=== PATIENT | male | born 2000 | race Caucasian/White ===

== ENCOUNTER 2022-02-25 04:12 | Emergency (ER) | payer OTHER | END 2022-02-25 04:40 | disposition home or self-care (01) | LOC: CSHERS 04:12 | DX: S01.511A Laceration without foreign body of lip, initial encounter (principal); F17.210 Nicotine dependence, cigarettes, uncomplicated; Y04.0XXA Assault by unarmed brawl or fight, initial encounter | CPT/HCPCS: 99281 ==